=== PATIENT | male | born 1995 | race Caucasian/White ===

== ENCOUNTER 2025-10-04 04:37 | Emergency (ER) | payer MEDICAID ==
[~2025-10-04] VITALS: Ht 170.2 cm; Wt 85.0 kg
[2025-10-04 04:51] VITALS: TEMP 100
[2025-10-04 05:28] LABS: COVID AG,FIA SOURCE NASAL SWAB
[2025-10-04 05:41] LABS: CALCIUM, TOTAL 9.5 mg/dL (8.8-10.5); CREATININE 1.09 mg/dL (0.60-1.30); GLOMERULAR FILTR. RATE CALC > 60 mL/min (>60); GLUCOSE,RANDOM 114 mg/dL (70-110); SODIUM SERUM 136 mmol/L (136-145); UREA NITROGEN, BLOOD 10 mg/dL (7-18)
[2025-10-04 05:42] LABS: PLATELET COUNT (AUTO) 219 K/uL (150-450); RED BLOOD CELL COUNT(AUTO) 5.36 MIL/uL (4.50-5.90); RED CELL DISTRIBUTION WIDTH 13.1 % (11.5-14.5); WHITE BLOOD COUNT (AUTO) 14.9 K/uL (4.5-11.0)
[2025-10-04] MEDS ORDERED: ACETAMINOPHEN 500 MG TABLET ONE (05:42)
[2025-10-04] MEDS: SODIUM CHLORIDE 0.9% 1,000 ML IV ONE (05:45)
[2025-10-04] MEDS: ACETAMINOPHEN 650 MG/20.3 ML SOLUTION UDCUP PO ONE (05:45)
[2025-10-04 05:52] LABS: SARS-COV2 (COVID) ANTIGEN,FIA Negative (Negative)
[2025-10-04 05:54] LABS: INFLUENZA TYPE A NEGATIVE FOR TYPE A (NEGATIVE); INFLUENZA TYPE B POSITIVE FOR TYPE B (NEGATIVE)
[2025-10-04] MEDS ORDERED: OSEL75CA45 PO (06:15)
[2025-10-04] MEDS: KETOROLAC TROMETHAMINE 30 MG/ML VIAL IVP ONE (06:37)
[2025-10-04 06:38] LABS: APPEARANCE,URINE HAZY (CLEAR); GLUCOSE, URINE (UA) NEGATIVE (NEGATIVE); LEUKOCYTE ESTERASE ,URINE LARGE (NEGATIVE); NITRATE,URINE NEGATIVE (NEGATIVE); OCCULT BLOOD,URINE NEGATIVE (NEGATIVE); SPECIFIC GRAVITIY, URINE 1.010 (1.003-1.030)
[2025-10-04 06:43] LABS: AMPHET/METH SCREEN,URINE NEGATIVE (NEGATIVE); BARBITURATE SCREEN, URINE NEGATIVE (NEGATIVE); CANNABINOID SCREEN,URINE POSITIVE (NEGATIVE); COCAINE SCREEN,URINE NEGATIVE (NEGATIVE); METHADONE SCREEN, URINE NEGATIVE (NEGATIVE)
[2025-10-04 07:07] LABS: PH,URINE DRUG SCREEN 7.5 (5.0-8.0)
[2025-10-04 07:15] VITALS: BP 127/80; PULSE 90; RESP 16; O2SAT 98
[2025-10-04 07:20] LABS: ALCOHOL, URINE DRUG SCREEN NEGATIVE (NEGATIVE)
== END 2025-10-04 07:35 | disposition home or self-care (01) ==
LOC: EMS 04:45
DX: J10.1 Influenza due to other identified influenza virus with other respiratory manifestations (principal); R10.84 Generalized abdominal pain; R05.9 Cough, unspecified; R11.2 Nausea with vomiting, unspecified; R50.9 Fever, unspecified; F17.210 Nicotine dependence, cigarettes, uncomplicated; Z20.822 Contact with and (suspected) exposure to COVID-19
CPT/HCPCS: 99284; 96374; 96361; 87426; 80048; 81001; 83690; 85025; 87077; 87086; 87804; 36415; 93005; 80307; J1885; J7030; 87186